=== PATIENT | male | born 1960 | race Caucasian/White ===

== ENCOUNTER 2017-10-17 09:52 | Emergency (ER) | payer BC ==
[~2017-10-17] VITALS: Ht 172.7 cm; Wt 75.8 kg
[~2017-10-17 09:52] MED LIST: PEDICHW50 PO
[2017-10-17 09:53] VITALS: TEMP 36.3; Ht 172.7 cm; Wt 75.8 kg
[2017-10-17] MEDS ORDERED: SODIUM CHLORIDE 0.9% 1000ML 1,000 ML IV STA (10:07)
[2017-10-17 10:09] VITALS: O2SAT 100
--- NOTE | 2017-10-17 10:13 | EMERGENCY ROOM VISIT NOTE ---
History First contact with patient: 09:59 Chief Complaint: DIZZY Stated Complaint: DIZZINESS Nursing Triage Summary: pt reports dizziness since today at approx 0700. pt reports "i feel like i am drunk but i have not been drinking, i was at work." pt reports he had a similar episode of dizziness several week ago when he woke up in the middle of the night to go to the bathroom. pt reports he felt dizzy then went back to bed and when he woke up the next day he felt fine. History of Present Illness The patient is a 57 year old male who presents to the Emergency Room via private vehicle with complaints of "dizziness". The patient states that a few weeks ago as he got out of bed and walk towards the bathroom he had an episode of feeling like he was drunk. He states that it is not necessarily feeling he is going to pass out or the room is spinning rather again he states it is "just like drunk". He states that he did not think much of it and when he woke up the next day he was feeling fine. He states that it was today again while at work around 0700 hrs. as he was walking around that he had an episode of dizziness. He states that it is persistent. Again he states that this also feels as if he is "drunk". He denies feeling any other symptoms. Specifically he denies any chest pain, shortness of breath, speech troubles, extremity weakness, or recent illness. Review of Systems A complete 10-point Review of Systems was discussed with the patient, with pertinent positives and negatives listed in the History of Present Illness. All remaining Review of Systems questions can be considered negative unless otherwise specified. Past Medical/Surgical History No pertinent. Family History No pertinent. Social History Smoking Status: Never Smoker Patient lives locally with family. Current/Historical Medications Scheduled Doxycycline (Monohydrate) (Doxycycline), 100 MG PO BID Physical Exam Vital Signs Date Time Temp Pulse Resp B/P (MAP) Pulse Ox O2 Delivery O2 Flow Rate FiO2 10/17/17 13:43 60 18 116/74 100 10/17/17 12:18 64 18 115/72 100 Room Air 10/17/17 11:07 62 16 117/79 100 Room Air 10/17/17 10:17 60 10/17/17 10:15 65 133/84 65 125/89 80 129/92 10/17/17 10:09 100 Room Air 10/17/17 09:53 36.3 75 16 144/92 100 Room Air Physical Exam VITAL SIGNS - Vital signs and nursing notes were reviewed. Stable. GENERAL -57-year-old male appearing his stated age who is in no acute distress. Communicates well with provider and answers questions appropriately. SKIN - Without rashes. HEAD - NC/AT. EYES - PERRL with EOMI bilaterally. Sclera anicteric. EARS - No deformities of external structures noted on gross examination bilaterally. External auditory canals without discharge or otorrhea. Tympanic membranes pearly boyd without retraction or bulging. No fluid or purulent material visualized behind the TM. Handle of malleus, umbo, cone of light, pars tensa/flaccid all easily visualized. NOSE - Midline and without cyanosis. No epistaxis or purulent drainage noted. MOUTH/OROPHARYNX - Without perioral cyanosis. Buccal mucosa pink and moist and without leukoplakia. Tongue midline with equal elevation of palate bilaterally. NECK - Neck with FROM. Supple to palpation. no lymphadenopathy noted. No nuchal rigidity. LUNGS - Chest wall symmetric without accessory muscle use, intercostals retractions, or central cyanosis. Normal vesicular breath sounds CTA B/L. No wheezes, rales, or rhonchi appreciated. CARDIAC - RRR with S1/S2. No murmur, rubs, or gallops appreciated. EXTREMITIES - No clubbing or peripheral cyanosis. No pretibial edema present. +5 /5 strength noted in UE/LE bilaterally. NEUROLOGIC - Cranial nerves II through XII grossly intact. Sensory intact to light touch throughout. PSYCH - A&O, and cooperates fully with examiner. Pt is very pleasant and interacts well with examiner. Medical Decision & Procedures ER Provider Diagnostic Interpretation: CT OF THE HEAD WITHOUT CONTRAST CLINICAL HISTORY: Dizziness. COMPARISON STUDY: No previous studies for comparison. CT DOSE: 788.63 mGycm TECHNIQUE: Helical axial images of the head were obtained without IV contrast. Automated exposure control was utilized for the study. A dose lowering technique was utilized adhering to the principles of ALARA. FINDINGS: No acute intracranial hemorrhage, midline shift or mass effect is present. Brain volume is normal. Ventricular system is normal. Basilar cisterns are patent. There are no extra axial collections. Boyd-white differentiation is maintained. There are no findings to suggest acute dural sinus thrombosis or acute territorial infarct. There are no significant calvarial abnormalities. Visualized portions of the sinuses and mastoid air cells are clear. IMPRESSION: No acute intracranial findings. Electronically signed by: Leon Brennan M.D. 10/17/2017 10:50 AM Dictated Date/Time: 10/17/2017 10:47 AM [~ rep ct add3]] CHEST ONE VIEW PORTABLE CLINICAL HISTORY: dizzy dyspnea COMPARISON STUDY: No previous studies for comparison. FINDINGS: The bones soft tissues and hemidiaphragms are normal. The cardiomediastinal silhouette is normal. The lungs are clear. The pulmonary vasculature is normal. IMPRESSION: Negative chest. The above report was generated using voice recognition software. It may contain grammatical, syntax or spelling errors. Electronically signed by: Christ Erickson M.D. 10/17/2017 12:18 PM Dictated Date/Time: 10/17/2017 12:17 PM Laboratory Results 10/17/17 10:09 Red Blood Count 4.97, Mean Corpuscular Volume 83.5, Mean Corpuscular Hemoglobin 30.4, Mean Corpuscular Hemoglobin Concent 36.4, Mean Platelet Volume 8.8, Neutrophils (%) (Auto) 51.0, Lymphocytes (%) (Auto) 38.4, Monocytes (%) (Auto) 9.1, Eosinophils (%) (Auto) 0.6, Basophils (%) (Auto) 0.6, Neutrophils # (Auto) 1.85, Lymphocytes # (Auto) 1.39, Monocytes # (Auto) 0.33, Eosinophils # (Auto) 0.02, Basophils # (Auto) 0.02 10/17/17 10:09 Test 10/17/17 10:09 10/17/17 10:21 White Blood Count 3.62 K/uL (4.8-10.8) Red Blood Count 4.97 M/uL (4.7-6.1) Hemoglobin 15.1 g/dL (14.0-18.0) Hematocrit 41.5 % (42-52) Mean Corpuscular Volume 83.5 fL (80-100) Mean Corpuscular Hemoglobin 30.4 pg (25-34) Mean Corpuscular Hemoglobin Concent 36.4 g/dl (32-36) Platelet Count 182 K/uL (130-400) Mean Platelet Volume 8.8 fL (7.4-10.4) Neutrophils (%) (Auto) 51.0 % Lymphocytes (%) (Auto) 38.4 % Monocytes (%) (Auto) 9.1 % Eosinophils (%) (Auto) 0.6 % Basophils (%) (Auto) 0.6 % Neutrophils # (Auto) 1.85 K/uL (1.4-6.5) Lymphocytes # (Auto) 1.39 K/uL (1.2-3.4) Monocytes # (Auto) 0.33 K/uL (0.11-0.59) Eosinophils # (Auto) 0.02 K/uL (0-0.5) Basophils # (Auto) 0.02 K/uL (0-0.2) RDW Standard Deviation 38.6 fL (36.4-46.3) RDW Coefficient of Variation 12.9 % (11.5-14.5) Immature Granulocyte % (Auto) 0.3 % Immature Granulocyte # (Auto) 0.01 K/uL (0.00-0.02) Prothrombin Time 10.8 SECONDS (9.0-12.0) Prothromb Time International Ratio 1.0 (0.9-1.1) Activated Partial Thromboplast Time 30.0 SECONDS (21.0-31.0) Partial Thromboplastin Ratio 1.2 Anion Gap 8.0 mmol/L (3-11) Est Creatinine Clear Calc Drug Dose 85.9 ml/min Estimated GFR () 105.4 Estimated GFR (Non- 90.9 BUN/Creatinine Ratio 9.9 (10-20) Calcium Level 8.8 mg/dl (8.5-10.1) Magnesium Level 1.9 mg/dl (1.8-2.4) Total Bilirubin 1.1 mg/dl (0.2-1) Aspartate Amino Transf (AST/SGOT) 14 U/L (15-37) Alanine Aminotransferase (ALT/SGPT) 18 U/L (12-78) Alkaline Phosphatase 68 U/L (45-117) Troponin I < 0.015 ng/ml (0-0.045) Total Protein 7.5 gm/dl (6.4-8.2) Albumin 4.4 gm/dl (3.4-5.0) Globulin 3.1 gm/dl (2.5-4.0) Albumin/Globulin Ratio 1.4 (0.9-2) Thyroid Stimulating Hormone (TSH) 2.260 uIu/ml (0.300-4.500) Lyme Disease IgG Antibody NEG (NEG) Urine Color YELLOW Urine Appearance CLEAR (CLEAR) Urine pH 5.5 (4.5-7.5) Urine Specific [place] 1.008 (1.000-1.030) Urine Protein NEG (NEG) Urine Glucose (UA) NEG (NEG) Urine Ketones 1+ (NEG) Urine Occult Blood NEG (NEG) Urine Nitrite NEG (NEG) Urine Bilirubin NEG (NEG) Urine Urobilinogen NEG (NEG) Urine Leukocyte Esterase NEG (NEG) Urine Opiates Screen NEG (NEG) Urine Methadone, Qualitative NEG (NEG) Urine Barbiturates NEG (NEG) Urine Phencyclidine (PCP) Level NEG (NEG) Ur Amphetamine/Methamphetamine NEG (NEG) MDMA (Ecstasy) Screen NEG (NEG) Urine Benzodiazepines Screen NEG (NEG) Urine Cocaine Metabolite NEG (NEG) Urine Marijuana (THC) NEG (NEG) Medications Administered Medications (Trade) Dose Ordered Sig/Donell Route Start Time Stop Time Status Last Admin Dose Admin Sodium Chloride 1,000 ml @ 999 mls/hr Q1H1M STAT IV 10/17/17 10:07 10/17/17 11:07 DC 10/17/17 10:19 999 MLS/HR Medical Decision Patient was seen and evaluated as above in room be 10. Review was performed of nursing notes and vital signs. After obtaining a thorough history and physical examination the above work up was performed. He presents to us today with dizziness. He had an episode of this a few weeks ago and it returned today. He has no evidence of CVA on exam. There is no weakness, speech trouble or neurovascular deficit appreciated on exam. Noncontrast CT of the head was obtained and found to be negative. Chest x-ray also obtained and negative. Bedside EKG obtained per my interpretation reveals normal sinus rhythm, without ectopy or ischemic change. No evidence of WI or PE there are peaked T waves in V4 through V6 without any abnormalities found on chest x-ray. Troponin negative. CBC does reveal decrease in white blood cell count 3.62. He was educated upon this finding. He is to follow with the family doctor. Coags are normal. Chemistry panel does not reveal any evidence of kidney or liver failure. Bilirubin high at 1.1 which she was also educated upon. TSH within normal limits. Urine 1+ ketones. Toxicology negative. Lyme testing does reveal equivocal IgM. He will be given a 21 day course of doxycycline. He is to follow with the family doctor. He was educated upon further band testing for definitive diagnosis. Given that his dizziness was subsiding throughout his stay. There is no evidence of CVA. I do believe that further workup in the outpatient setting is warranted and appropriate versus inpatient management. I do not suspect any emergent cause to his dizziness at this time. The patient was educated upon management, had questions answered prior to discharge, and was discharged home in good condition. Case was discussed with the attending physician. In the evaluation and treatment of this patient, the following differential diagnoses were considered: Concussion, Contrecoup Injury, Brain Tumor, Depression, Encephalitis, Hypothyroidism, Meningitis, CVA, TIA, Migraine, Cluster Headache, Intracranial Abnormality, Intracranial Hemorrhage, Subdural Hematoma, Subarachnoid Hemorrhage, Hydrocephalus. Impression Primary Impression: Dizziness Additional Impression: equivocal lyme testing Departure Information Dispostion Home / Self-Care Condition GOOD Prescriptions Doxycycline (Monohydrate) (Doxycycline) 100 Mg Cap 100 MG PO BID for 21 Days, #42 TABS Prov: Ishmael Henderson, MATT 10/17/17 Referrals Berny Jaime III, M.D. (PCP) Patient Instructions My [facility] Additional Instructions You were seen in the emergency department for dizziness. At this time no finding requires you to stay in the hospital but as we discussed that this would worsen please return. Please stay well-hydrated. Please call your family doctor soon as possible schedule follow-up. Please follow-up with a slight decrease in white blood cell count, and your findings here today. Lyme testing was equivocal. I recommend doxycycline. Please call here in 7 days if you do not hear of your results at [phone]. You have been prescribed Doxycycline to be taken as prescribed. This is an antibiotic. All antibiotics have the potential to cause diarrhea. Stop this medication and contact a medical provider if you were to develop any significant adverse side effects including: wheezing, shortness of breath, passing out, vomiting, or a diffuse rash. Always take antibiotics as directed and COMPLETE the ENTIRE course regardless of the improvement of your symptoms. Protect yourself with sunscreen while on this antibiotic as it increases your skin's sensitivity to the light and cause bad sunburns. In addition, you should be sure to take this pill after eating. Make sure the pill is completely swallowed as this medication can cause irritation to the lining of the esophagus. Do NOT drink milk or eat anything with large amounts of Calcium in them 1 hour prior to taking this medication as this will decrease the effectiveness of the medication. Please return with any new/concerning symptoms. Problem Qualifiers
[2017-10-17 10:20] LABS: BASO % 0.6 %; BASO ABS # 0.02 K/uL (0-0.2); EOS % 0.6 %; EOS ABS # 0.02 K/uL (0-0.5); HEMATOCRIT 41.5 % (42-52); HEMOGLOBIN 15.1 g/dL (14.0-18.0); IG# 0.01 K/uL (0.00-0.02); LYMPH % 38.4 %; LYMPH ABS # 1.39 K/uL (1.2-3.4); MEAN CELL VOLUME 83.5 fL (80-100); MEAN CORPUSCULAR HEMOGLOBIN 30.4 pg (25-34); MEAN CORPUSCULAR HGB CONC 36.4 g/dl (32-36); MEAN PLATELET VOLUME 8.8 fL (7.4-10.4); MONO % 9.1 %; MONO ABS # 0.33 K/uL (0.11-0.59); NEUT ABS # 1.85 K/uL (1.4-6.5); PLATELET COUNT 182 K/uL (130-400); RED CELL DISTRIBUTION WIDTH CV 12.9 % (11.5-14.5); RED CELL DISTRIBUTION WIDTH SD 38.6 fL (36.4-46.3); WHITE BLOOD COUNT 3.62 K/uL (4.8-10.8)
[2017-10-17 10:50] LABS: ALBUMIN 4.4 gm/dl (3.4-5.0); ALT/SGPT 18 U/L (12-78); AST/SGOT 14 U/L (15-37); BLOOD UREA NITROGEN 9 mg/dl (7-18); CALCIUM 8.8 mg/dl (8.5-10.1); CARBON DIOXIDE 25 mmol/L (21-32); CREATININE 0.94 mg/dl (0.60-1.40); GLUCOSE 90 mg/dl (70-99); POTASSIUM 3.8 mmol/L (3.5-5.1); SODIUM 136 mmol/L (136-145)
--- NOTE | 2017-10-17 10:52 | DIAGNOSTIC IMAGING REPORT ---
CT OF THE HEAD WITHOUT CONTRAST CLINICAL HISTORY: Dizziness. COMPARISON STUDY: No previous studies for comparison. CT DOSE: 788.63 mGycm TECHNIQUE: Helical axial images of the head were obtained without IV contrast. Automated exposure control was utilized for the study. A dose lowering technique was utilized adhering to the principles of ALARA. FINDINGS: No acute intracranial hemorrhage, midline shift or mass effect is present. Brain volume is normal. Ventricular system is normal. Basilar cisterns are patent. There are no extra axial collections. Body-white differentiation is maintained. There are no findings to suggest acute dural sinus thrombosis or acute territorial infarct. There are no significant calvarial abnormalities. Visualized portions of the sinuses and mastoid air cells are clear. IMPRESSION: No acute intracranial findings. Electronically signed by: Leon Brennan M.D. 10/17/2017 10:50 AM Dictated Date/Time: 10/17/2017 10:47 AM
[2017-10-17 11:01] LABS: ALKALINE PHOSPHATASE 68 U/L (45-117); TOTAL PROTEIN 7.5 gm/dl (6.4-8.2)
--- NOTE | 2017-10-17 12:19 | DIAGNOSTIC IMAGING REPORT ---
CHEST ONE VIEW PORTABLE CLINICAL HISTORY: dizzy dyspnea COMPARISON STUDY: No previous studies for comparison. FINDINGS: The bones soft tissues and hemidiaphragms are normal. The cardiomediastinal silhouette is normal. The lungs are clear. The pulmonary vasculature is normal. IMPRESSION: Negative chest. The above report was generated using voice recognition software. It may contain grammatical, syntax or spelling errors. Electronically signed by: Christ Erickson M.D. 10/17/2017 12:18 PM Dictated Date/Time: 10/17/2017 12:17 PM
[2017-10-17] MEDS ORDERED: DOXY-300 PO (12:37)
[2017-10-17 13:43] VITALS: BP 116/74; PULSE 60; O2SAT 100
== END 2017-10-17 13:44 | disposition home or self-care (01) ==
LOC: C.EDB 09:53
DX: R42 Dizziness and giddiness (principal); A69.20 Lyme disease, unspecified